=== PATIENT | female | born 1955 | race Caucasian/White ===

== ENCOUNTER 2021-12-21 08:04 | Emergency (ER) | payer MEDICARE | END 2021-12-21 09:04 | disposition home or self-care (01) | LOC: NAV ERS 08:04 | DX: S83.91XA Sprain of unspecified site of right knee, initial encounter (principal); E03.9 Hypothyroidism, unspecified; W10.9XXA Fall (on) (from) unspecified stairs and steps, initial encounter; Z79.899 Other long term (current) drug therapy ==